=== PATIENT | female | born 1990 | race Hispanic/Latino ===

== ENCOUNTER 2017-11-21 19:29 | Emergency (ER) | payer SELFPAY | END 2017-11-21 21:57 | disposition home or self-care (01) | LOC: ERS 19:29 | DX: H65.93 Unspecified nonsuppurative otitis media, bilateral (principal) | CPT/HCPCS: 99282 ==

== ENCOUNTER 2019-08-28 20:30 | Outpatient (CLI) | payer OTHER | END 2019-08-28 20:31 | disposition home or self-care (01) | LOC: SLEEPLAB 20:30 | PROVIDERS: ATTEND Nurse Practitioner Family | DX: G47.10 Hypersomnia, unspecified (principal); G47.419 Narcolepsy without cataplexy; G47.9 Sleep disorder, unspecified; R53.83 Other fatigue | CPT/HCPCS: 95810 ==

== ENCOUNTER 2019-08-29 05:00 | Outpatient (CLI) | payer OTHER | END 2019-08-29 05:01 | disposition home or self-care (01) | LOC: SLEEPLAB 05:00 | PROVIDERS: ATTEND Nurse Practitioner Family | DX: G47.10 Hypersomnia, unspecified (principal); G47.9 Sleep disorder, unspecified; G47.419 Narcolepsy without cataplexy; R53.83 Other fatigue | CPT/HCPCS: 95805 ==